=== PATIENT | female | born 1995 | race Hispanic/Latino ===

== ENCOUNTER 2017-10-11 12:43 | Emergency (ER) | payer OTHER ==
[2017-10-11 13:27] VITALS: RESP 18; TEMP 98.2; O2SAT 100; BMI 31.2
[2017-10-11] MEDS ORDERED: Sodium Chloride 0.9% 1,000 ML IV STA (13:44)
--- NOTE | 2017-10-11 13:44 | ED PDOC ---
Arrival/HPI - General Time Seen by Provider: 10/11/17 13:33 Historian: Patient - History of Present Illness Narrative History of Present Illness (Text): 10/11/17 13:33 21 y/o female,no significant pmh, psychiatric history including depression, nkda , c/o epigastric pain x 3 days with nausea/vomiting x 3 days. Pt. stated that she has epigastric pain x 3 days, been having it burning on and off, associated with nausea/vomiting today, no night sweat, no coughing, no chest pain or shortness of breath, no rash, no alcohol or drug abuse, no rash, no overdose, no other medical or psychological complaints. Past Medical History - Provider Review Nursing Documentation Reviewed: Yes Family/Social History - Physician Review Nursing Documentation Reviewed: Yes Family/Social History: Unknown Family HX Allergies/Home Meds Allergies/Adverse Reactions: Allergies shrimp Allergy (Verified 10/11/17 13:33) ANAPHYLAXIS strawberry Allergy (Verified 10/11/17 13:33) ANAPHYLAXIS Home Medications: Home Meds Medication Instructions Recorded Confirmed Phentermine HCl [Adipex-P] 37.5 mg PO DAILY 10/11/17 10/11/17 Venlafaxine [Effexor XR] 1 mg PO DAILY 10/11/17 10/11/17 Review of Systems - Review of Systems Constitutional: absent: Fatigue, Fevers Eyes: absent: Vision Changes ENT: absent: Hearing Changes Respiratory: absent: SOB, Cough Cardiovascular: absent: Chest Pain Gastrointestinal: Abdominal Pain, Nausea, Vomiting. absent: Diarrhea Musculoskeletal: absent: Arthralgias, Back Pain Skin: absent: Rash, Pruritis Neurological: absent: Headache, Dizziness Psychiatric: absent: Anxiety, Depression, Suicidal Ideation Physical Exam Vital Signs Reviewed: Yes Vital Signs Temp Pulse Resp BP Pulse Ox 10/11/17 15:00 102 H 18 138/78 100 10/11/17 13:27 98.2 F 99 H 18 142/85 100 Temperature: Afebrile Blood Pressure: Normal Pulse: Regular Respiratory Rate: Normal Appearance: Positive for: Well-Appearing, Non-Toxic Pain Distress: Moderate Mental Status: Positive for: Alert and Oriented X 3 - Systems Exam Head: Present: Atraumatic, Normocephalic, Other (no temporal artery tenderness) Pupils: Present: PERRL Extroacular Muscles: Present: EOMI Conjunctiva: Present: Normal Ears: Present: NORMAL TM, Normal Canal. No: Erythema Mouth: Present: Moist Mucous Membranes Pharnyx: No: ERYTHEMA, EXUDATE, TONSILS ENLARGED Nose (External): Present: Atraumatic. No: Abrasion, Contusion, Laceration Nose (Internal): Present: Normal Inspection, No Active Bleeding. No: Rhinorrhea , Septal Hematoma, Epistaxis Neck: Present: Normal Range of Motion, Trachea Midline. No: Meningeal Signs, MIDLINE TENDERNESS, Paraspinal Tenderness, Lymphadenopathy Respiratory/Chest: Present: Clear to Auscultation, Good Air Exchange. No: Respiratory Distress, Accessory Muscle Use Cardiovascular: Present: Regular Rate and Rhythm, Normal S1, S2. No: Murmurs Abdomen: Present: Tenderness (+epigastric tenderness). No: Distention, Peritoneal Signs Back: Present: Normal Inspection. No: CVA Tenderness, Midline Tenderness, Paraspinal Tenderness Upper Extremity: Present: Normal Inspection, Normal ROM, NORMAL PULSES, Neurovascularly Intact, Capillary Refill < 2s. No: Cyanosis, Edema, Tenderness , Swelling, Erythema, Deformity Lower Extremity: Present: Normal Inspection. No: Edema Neurological: Present: GCS=15, CN II-XII Intact, Speech Normal, Motor Func Grossly Intact, Gait Normal, Memory Normal Skin: Present: Warm, Dry, Normal Color. No: Rashes Psychiatric: Present: Alert, Oriented x 3, Normal Insight, Normal Concentration Medical Decision Making ED Course and Treatment: 10/11/17 13:50 Differential: pancreatitis vs. gastritis vs. cholecystitis vs. UTI vs. drug abuse vs. rhabdomylosis vs. -Labs/ua/uds -gallbladder sonogram -IVF/reglan/pepcid -Observe and reassess 10/11/17 15:20 -Urine hcg is negative. -Gallbladder sonogram show Mild fatty infiltration of the liver. Otherwise unremarkable examination. -Labs show no acute findings except wbc 12.3 (afebrile, likely stress and pain induced) -Lipase within normal limit -Acetaminophen and UDS within normal limit -Pt. 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 Pt. has no homocidal or suicidal ideation, no auditory or visual hallucination, request to sign her self out against my medical advice. Pt. refused psychiatric evaluation. AMA -Pt. left against medical advice with her mother, refused to wait for discharge paper and prescription. I advised them to see the pcp today after leaving the ER. - Lab Interpretations Lab Results: 10/11/17 14:10 10/11/17 14:10 Lab Results 10/11/17 14:10: Acetaminophen < 10.0 L 10/11/17 14:10: WBC 12.3 H, RBC 4.97, Hgb 14.5, Hct 41.6, MCV 83.7, MCH 29.2, MCHC 34.9, RDW 12.7, Plt Count 389, MPV 9.9, Gran % 79.3 H, Lymph % (Auto) 15.2 L, Amador % (Auto) 4.7, Eos % (Auto) 0.6 L, Baso % (Auto) 0.2, Gran # 9.77 H, Lymph # (Auto) 1.9, Amador # (Auto) 0.6, Eos # (Auto) 0.1, Baso # (Auto) 0.03 10/11/17 14:10: Sodium 142, Potassium 4.1, Chloride 104, Carbon Dioxide 23, Anion Gap 19, BUN 13, Creatinine 0.5 L, Est GFR ( Amer) > 60, Est GFR ( Non-Af Amer) > 60, Random Glucose 110, Calcium 10.4, Magnesium 1.8, Total Bilirubin 0.4, AST 43 H, ALT 92 H, Alkaline Phosphatase 167 H, Total Creatine Kinase 43, Total Protein 9.7 H, Albumin 5.3 H, Globulin 4.4, Albumin/Globulin Ratio 1.2, Lipase 100 10/11/17 13:50: Urine Opiates Screen Negative, Urine Methadone Screen Negative, Ur Barbiturates Screen Negative, Ur Phencyclidine Scrn Negative, Ur Amphetamines Screen Negative, U Benzodiazepines Scrn Negative, U Oth Cocaine Metabols Negative, U Cannabinoids Screen Negative 10/11/17 13:50: Urine Color Yellow, Urine Appearance Sl cloudy, Urine pH 6.0, Ur Specific [place] 1.020, Urine Protein Negative, Urine Glucose (UA) Negative, Urine Ketones Negative, Urine Blood Small H, Urine Nitrate Negative, Urine Bilirubin Negative, Urine Urobilinogen 0.2, Ur Leukocyte Esterase Negative, Urine RBC 0 - 2, Urine WBC 2 - 5, Ur Epithelial Cells 6 - 8, Urine Bacteria Mod I have reviewed the lab results: Yes - RAD Interpretation Radiology Orders: 10/11/17 13:44 GALLBLADDER & PANCREAS [US] Stat HISTORY: epigastric pain x 3 days. COMPARISON: None. TECHNIQUE: Sonographic evaluation of the right upper quadrant of the abdomen. FINDINGS: LIVER: Measures 16.0 cm in length. Diffusely increased echogenicity of the liver parenchyma. Consistent with fatty infiltration. No mass. Smooth contour. No biliary ductal dilatation. GALLBLADDER: Unremarkable. No gallstones. COMMON BILE DUCT: Measures 3 mm. No stones. No dilatation. PANCREAS: Unremarkable as visualized. No mass. No ductal dilatation. RIGHT KIDNEY: Measures 10.7 cm in length. Normal echogenicity. No calculus, mass, or hydronephrosis. AORTA: No aneurysmal dilatation. IVC: Unremarkable. OTHER FINDINGS: None . IMPRESSION: Mild fatty infiltration of the liver. Otherwise unremarkable examination. 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 - Medication Orders Current Medication Orders: Discontinued Medications Famotidine (Pepcid) 20 mg IVP STAT STA Stop: 10/11/17 13:45 Last Admin: 10/11/17 14:14 Dose: 20 mg IVP Administration Document 10/11/17 14:14 EQ (Rec: 10/11/17 14:14 EQ [id number]) Charges for Administration # of IVP Administrations 1 Sodium Chloride (Sodium Chloride 0.9%) 1,000 mls @ 999 mls/hr IV .Q1H1M STA Stop: 10/11/17 14:44 Last Admin: 10/11/17 14:13 Dose: 999 mls/hr eMAR Start Stop Document 10/11/17 14:13 EQ (Rec: 10/11/17 14:14 EQ [id number]) Intravenous Solution Start Date 10/11/17 Start Time 14:13 Metoclopramide HCl (Reglan) 10 mg IVP STAT STA Stop: 10/11/17 13:45 Last Admin: 10/11/17 14:14 Dose: 10 mg IVP Administration Document 10/11/17 14:14 EQ (Rec: 10/11/17 14:14 EQ [id number]) Charges for Administration # of IVP Administrations 1 - PA / 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 Disposition/Present on Arrival - Present on Arrival Any Indicators Present on Arrival: No History of DVT/PE: No History of Uncontrolled Diabetes: No Urinary Catheter: No History of Decub. Ulcer: No - Disposition Have Diagnosis and Disposition been Completed?: Yes Diagnosis: Abdominal pain, Nausea and vomiting, Noncompliance Disposition Time: 15:20 Condition: GOOD
[2017-10-11 14:10] LABS: URINE BILIRUBIN NEGATIVE (NEGATIVE); URINE BLOOD SMALL (NEGATIVE); URINE GLUCOSE (UA) NEGATIVE (NEGATIVE); URINE LEUKOCYTE ESTERASE NEGATIVE Leu/uL (NEGATIVE); URINE PROTEIN NEGATIVE mg/dL (<30 mg/dL); URINE UROBILINOGEN 0.2 E.U./dL (<1 E.U./dL)
[2017-10-11 14:15] LABS: URINE APPEARANCE SL CLOUDY (CLEAR); URINE COLOR YELLOW (YELLOW)
[2017-10-11 14:20] LABS: URINE BACTERIA MOD (NEG); URINE RBC 0 - 2 /hpf (0-2)
[2017-10-11 14:27] LABS: BASO # 0.03 K/mm3 (0.0-2.0); BASO % 0.2 % (0.0-3.0); EOS # 0.1 (0.0-0.7); EOS % 0.6 % (1.5-5.0); GRAN # 9.77 (1.4-6.5); GRAN % 79.3 % (50.0-68.0); HEMOGLOBIN 14.5 g/dL (12.0-16.0); LYMPH # 1.9 (1.2-3.4); LYMPH % 15.2 % (22.0-35.0); MEAN CELL VOLUME 83.7 fl (80.0-105.0); MEAN CORPUSCULAR HEMOGLOBIN 29.2 pg (25.0-35.0); MEAN CORPUSCULAR HGB CONC 34.9 g/dl (31.0-37.0); MEAN PLATELET VOLUME 9.9 fl (7.0-11.0); MONO # 0.6 (0.1-0.6); MONO % 4.7 % (1.0-6.0); RBC 4.97 10^6/uL (3.5-6.1); RED CELL DISTRIBUTION WIDTH 12.7 % (11.5-14.5); WHITE BLOOD COUNT 12.3 10^3/ul (4.5-11.0)
[2017-10-11 14:31] LABS: BARBITURATES, UR NEGATIVE (NEGATIVE); BENZODIAZEPINES, UR NEGATIVE (NEGATIVE); OPIATES, UR NEGATIVE (NEGATIVE); PHENCYCLIDINE, UR NEGATIVE (NEGATIVE)
[2017-10-11 14:36] LABS: ALBUMIN 5.3 g/dL (3.0-4.8); BLOOD UREA NITROGEN 13 mg/dL (7-21); CALCIUM 10.4 mg/dL (8.4-10.5); GFR NON-AFRICAN AMERICAN > 60
[2017-10-11 14:37] LABS: ALB/GLOB RATIO 1.2 (1.1-1.8); ALT/SGPT 92 U/L (7-56); AST/SGOT 43 U/L (14-36); LIPASE 100 U/L (23-300)
--- NOTE | 2017-10-11 15:04 | US ---
Date of service: 10/11/2017 HISTORY: epigastric pain x 3 days. COMPARISON: None. TECHNIQUE: Sonographic evaluation of the right upper quadrant of the abdomen. FINDINGS: LIVER: Measures 16.0 cm in length. Diffusely increased echogenicity of the liver parenchyma. Consistent with fatty infiltration. No mass. Smooth contour. No biliary ductal dilatation. GALLBLADDER: Unremarkable. No gallstones. COMMON BILE DUCT: Measures 3 mm. No stones. No dilatation. PANCREAS: Unremarkable as visualized. No mass. No ductal dilatation. RIGHT KIDNEY: Measures 10.7 cm in length. Normal echogenicity. No calculus, mass, or hydronephrosis. AORTA: No aneurysmal dilatation. IVC: Unremarkable. OTHER FINDINGS: None . IMPRESSION: Mild fatty infiltration of the liver. Otherwise unremarkable examination.
[2017-10-11 15:13] VITALS: BP 138/78; PULSE 102
== END 2017-10-11 15:44 | disposition home or self-care (01) ==
LOC: ED 12:43
DX: R10.13 Epigastric pain (principal); R11.2 Nausea with vomiting, unspecified
CPT/HCPCS: 76705; 80053; 80324; 80329; 80345; 80346; 80349; 80353; 80358; 80361; 81001; 82550; 83690; 83735; 83992; 85025; 96374; 96375; 99284; J2765; J7030